=== PATIENT | male | born 1985 | race African-American/Black ===

== ENCOUNTER 2018-01-15 12:11 | Emergency (ER) | payer OTHER ==
[~2018-01-15] VITALS: Ht 182.9 cm; Wt 106.8 kg
[2018-01-15] MEDS ORDERED: MOTRIN600 MG PO (16:23)
[2018-01-15] MEDS ORDERED: CIPROFLOXACIN H10 ML LEFT EYE (16:23)
[2018-01-15 16:37] VITALS: BP 116/59
== END 2018-01-15 16:42 ==
LOC: EME 12:11
DX: S05.12XA Contusion of eyeball and orbital tissues, left eye, initial encounter (principal); S80.211A Abrasion, right knee, initial encounter; V53.6XXA Passenger in pick-up truck or van injured in collision with car, pick-up truck or van in traffic accident, initial encounter; Y92.410 Unspecified street and highway as the place of occurrence of the external cause; J45.909 Unspecified asthma, uncomplicated; Z87.891 Personal history of nicotine dependence
CPT/HCPCS: 70486; 73564; 99281; 99283